=== PATIENT | female | born 1955 | race Caucasian/White ===

== ENCOUNTER 2017-10-15 09:14 | Emergency (ER) | payer BC ==
[2017-10-15 10:02] VITALS: BP 127/62
--- NOTE | 2017-10-15 11:24 | UC ---
Lower Extremity/Ankle HPI - HPI Summary HPI Summary: pt noted vague "nerve" pain to the base of her L second toe for about a week and then the area looked a little bruised. last week. top of foot began to swell , turn pink and feel warm. denies hx of injury, f/c's and gout. - History of Current Complaint Chief Complaint: UCLowerExtremity Stated Complaint: lft foot pain Time Seen by Provider: 10/15/17 10:54 Hx Obtained From: Patient, Family/Client Experience Consultant ?: No Onset/Duration: Gradual Onset Pain Intensity: 8 Aggravating Factor(s): Standing, Ambulation Alleviating Factor(s): Rest Able to Bear Weight: Yes - Risk Factors Gout Risk Factors: Age Over 40 DVT Risk Factors: Negative Septic Arthritis Risk Factor: Negative - Allergies/Home Medications Allergies/Adverse Reactions: Allergies Allergy/AdvReac Type Severity Reaction Status Date / Time No Known Allergies Allergy Verified 09/20/13 16:16 PMH/Surg Hx/FS Hx/Imm Hx - Additional Past Medical History Additional PMH: Breast CA - Surgical History Surgical History: Yes Surgery Procedure, Year, and Place: hysterectomy, breast biopsy - Social History Occupation: Employed Full-time Lives: With Family Alcohol Use: None Substance Use Type: None Smoking Status (MU): Never Smoked Tobacco - Immunization History Vaccination Up to Date: Yes Review of Systems Constitutional: Negative Skin: Negative Eyes: Negative ENT: Negative Respiratory: Negative Cardiovascular: Negative Gastrointestinal: Negative Genitourinary: Negative Motor: Negative Neurovascular: Negative Neurological: Negative Psychological: Negative Is Patient Immunocompromised?: No All Other Systems Reviewed And Are Negative: Yes Physical Exam Triage Information Reviewed: Yes Appearance: Well-Appearing Vital Signs: Initial Vital Signs Temp 98.7 F 10/15/17 09:56 Pulse 67 10/15/17 09:56 Resp 16 10/15/17 09:56 BP 127/62 10/15/17 09:56 Pulse Ox 100 10/15/17 09:56 Vital Signs Reviewed: Yes Eyes: Positive: Conjunctiva Clear ENT: Positive: Normal ENT inspection Neck: Positive: Supple, Nontender Respiratory: Positive: Lungs clear, Normal breath sounds Cardiovascular: Positive: RRR, No Murmur Abdomen Description: Positive: Nontender, No Organomegaly, Soft Bowel Sounds: Positive: Present Musculoskeletal: Positive: Other: - L dorsal foot is slightly pink, mildly warm and tender, s/v/m is intact. L hip/knee/ankle unremarkable. No streaking LLE. Neurological: Positive: Alert Psychological: Positive: Normal Response To Family, Age Appropriate Behavior Skin Exam: Normal - aside from L foot Diagnostics - Radiology No standard instances Xray Interpretation: No Acute Changes Radiology Interpretation Completed By: Radiologist Lower Extremity Course/Dx - Course Course Of Treatment: acute pain L dorsal foot. xray nad but could be a stress fx. given pink, warm and swelling, could be infection. doubt gout. do not feel septic joint or osteomyelitis. will tx antibiotic, nsaid and post op shoe with close f/u. tx plan d/w Dr Sullivan - Differential Dx/Diagnosis Provider Diagnoses: Acute pain/swelling L dorsal foot. Possible cellulitis vs stress fx. Discharge - Discharge Plan Condition: Stable Disposition: HOME Prescriptions: Cephalexin CAP* [Keflex CAP*] 500 mg PO TID 10 Days #30 cap Naproxen [Naproxen 500 mg] 500 mg PO BID 5 Days #10 tablet Patient Education Materials: Foot Fracture in Adults (ED), Cellulitis (DC) Referrals: Ryder Del Cid MD [Medical Doctor] - 2 Days
--- NOTE | 2017-10-15 11:57 | RAD ---
Indication: Left foot pain. 3 views of left foot demonstrates no fracture. No other bone or joint abnormality is noted. IMPRESSION: No fracture of the left foot is noted.
== END 2017-10-15 12:28 | disposition home or self-care (01) ==
LOC: UCCORT 09:14
DX: M79.672 Pain in left foot (principal); M79.89 Other specified soft tissue disorders
CPT/HCPCS: 99203; G0463